=== PATIENT | male | born 1955 | race Caucasian/White ===

== ENCOUNTER 2020-06-09 16:22 | Emergency (ER) | payer OTHER ==
[2020-06-09] MEDS ORDERED: DIPH/PERTUSS(ACELL)/TETANUS VAC/PF 0.5 ML SYR (>=10YO) IM ONE (16:39)
--- NOTE | 2020-06-09 16:44 | ER Document Report ---
ED Medical Screen (RME) - General Chief Complaint: Laceration Stated Complaint: LACERATION/CHEEK, NOSE BLEEDING Time Seen by Provider: 06/09/20 16:38 Mode of Arrival: Ambulatory Information source: Patient Notes: 65-year-old male presented to ED for multiple lacerations to the right side of his face. He states he was at work when a branch hit him in the face. He has a very irregular wound to the right side of his face that is bleeding at this time. He states he does take a baby aspirin. He states he does not know when his last tetanus immunization was. I have sent him for a facial CT he states he did not have any other injuries to his head or his jaw just the cheek and eye socket where he was hit. I have greeted and performed a rapid initial assessment of this patient. A comprehensive ED assessment and evaluation of the patient, analysis of test results and completion of medical decision making process will be conducted by an additional ED providers. Physical Exam - Vital signs Vitals: Temp Pulse Resp BP Pulse Ox 97.5 F 68 18 139/72 H 97 06/09/20 16:26 06/09/20 16:26 06/09/20 16:26 06/09/20 16:26 06/09/20 16:26 Course - Vital Signs Vital signs: Temp Pulse Resp BP Pulse Ox 97.5 F 68 18 139/72 H 97 06/09/20 16:26 06/09/20 16:26 06/09/20 16:26 06/09/20 16:26 06/09/20 16:26
--- NOTE | 2020-06-09 17:07 | ER Document Report ---
ED General - General Chief Complaint: Laceration Stated Complaint: LACERATION/CHEEK, NOSE BLEEDING Time Seen by Provider: 06/09/20 16:38 Mode of Arrival: Ambulatory - [facility] Notes: 65-year-old male presents with injury to his right cheek. Patient states that he was outside at work, he was suddenly hit in the face by a flying branch, estimated to be about 2 feet long and 1 inch in diameter. This occurred around 3:30 PM. After the impact he states that he had a little dizziness, but did not lose consciousness, did not fall back or have a head injury. He currently complains of pain to the area and feels that his upper bite is not aligned as usual. Had some nosebleeding from the right side which has seemed to have stopped now. He denies eye pain or foreign body sensation to the right eye, denies visual changes. He denies headache or neck pain currently. Denies any other injuries. He is unsure of his last tetanus. - Related Data Allergies/Adverse Reactions: No Known Allergies Allergy (Verified 06/09/20 17:23) Past Medical History - General Information source: Patient - Social History Smoking Status: Unknown if Ever Smoked Family History: Reviewed & Not Pertinent Review of Systems - Review of Systems Constitutional: No symptoms reported EENT: Dental problem. denies: Eye pain, Blurred vision Cardiovascular: No symptoms reported Respiratory: No symptoms reported Gastrointestinal: No symptoms reported Genitourinary: No symptoms reported Male Genitourinary: No symptoms reported Musculoskeletal: No symptoms reported Skin: Other - Wound Hematologic/Lymphatic: No symptoms reported Neurological/Psychological: denies: Weakness, Headaches Physical Exam - Vital signs Vitals: Temp Pulse Resp BP Pulse Ox 97.5 F 68 18 139/72 H 97 06/09/20 16:26 06/09/20 16:26 06/09/20 16:26 06/09/20 16:26 06/09/20 16:26 Interpretation: No: Hypotensive - General General appearance: Appears well, Alert - HEENT Head: Normocephalic, Atraumatic Eyes: No: Periorbital ecchymosis, Periorbital edema Extraocular movements intact: Yes Pupils: PERRL Notes: There is evidence of prior right-sided nose bleeding. No septal hematoma. He has irregular laceration to right cheek, approximately 6 cm in length, deep. There is tenderness around the right cheek. No right orbital or nasal tenderness. Right TM is clear. no looseness to upper partial denture - Respiratory Respiratory status: No respiratory distress Chest status: Nontender Breath sounds: Normal Chest palpation: Normal - Cardiovascular Rhythm: Regular - Abdominal Tenderness: Nontender - Back Back: Normal, Nontender - No midline C-spine tenderness - Extremities General upper extremity: Normal inspection General lower extremity: Normal inspection - No tenderness to bilateral shoulders, arms, hips, lower extremities - Neurological Neuro grossly intact: Yes Cognition: Normal Orientation: AAOx4 [place] Coma Scale Eye Opening: Spontaneous [place] Coma Scale Verbal: Oriented [place] Coma Scale Motor: Obeys Commands [place] Coma Scale Total: 15 - Psychological Associated symptoms: Normal affect - Skin Skin Temperature: Warm Course - Re-evaluation Re-evalutation: 06/09/20 17:33 65-year-old male presents after sustaining a right cheek laceration from a branch. He is alert and oriented, GCS 15, vitals are stable. He has a large laceration to his right cheek. A CT max face was ordered from triage, I have reviewed and it appears that he has a right maxillary fracture, therefore making this an open fracture. Final CT read is pending. Will cover with Unas[employer]. Treat pain and update tetanus. Add CT head/cspine, low suspicion for injury. 06/09/20 17:51 CT has resulted, showing b/l maxillary fractures. 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 He lives in [place] and would prefer to go to [facility] 06/09/20 19:[address] head/cspine 06/09/20 19:22 called [facility] to initiate transfer 06/09/20 19:[address] Cohen on for face coverage at [facility]. She requests to see pt in her office tomorrow, does not need transfer. has asked for wound washout and repair, dx with abx. will see in office at 3pm tomorrow. 06/09/20 21:04 Laceration was repaired at bedside. Discussed face fracture precautions and again rediscussed to follow-up tomorrow with plastic surgery. 06/09/20 22:06 Patient's arrived at bedside. We went over all precautions. Has received prescriptions for Augmentin and [place]. Patient was discharged in stable condition. - Vital Signs Vital signs: Temp Pulse Resp BP Pulse Ox 97.5 F 68 18 139/72 H 97 06/09/20 16:26 06/09/20 16:26 06/09/20 16:26 06/09/20 16:26 06/09/20 16:26 Procedures - Laceration/Wound Repair Right Face Wound length (cm): 6 Wound's Depth, Shape: Irregular, Contused tissue Laceration pre-procedure: Sterile PPE donned, Betadine prep applied, Sterile drapes applied Anesthetic type: 1% Lidocaine w/epi Volume Anesthetic (mLs): 5 Wound explored: No foreign body removed Irrigated w/ Saline (mLs): 1,000 Wound Repaired With: Sutures Suture Size/Type: 5:0, Prolene Number of Sutures: 6 Layer Closure?: No Post-procedure wound care: Sterile dressing applied Complications: No Discharge - Discharge Clinical Impression: Open fracture facial bones Qualifiers: Encounter type: initial encounter Facial bone/location: unspecified site of maxillary bone Laterality: right Qualified Code(s): S02.40CB - Maxillary fracture, right side, initial encounter for open fracture Condition: Stable Disposition: HOME, SELF-CARE Additional Instructions: Please do not eat any hard foods. Do not blow your nose. Begin course of antibiotics. Use prescribed [place] as needed for pain. Please see Dr. Cohen with plastic surgery tomorrow at 3 PM in [place], have attached her address below. office tomorrow @ 3p Dr Anupama Cohen [address], [place] [phone] Prescriptions: Hydrocodone/Acetaminophen [[place] 5-325 mg Tablet] 1 tab PO Q4HP PRN #20 tablet PRN Reason: Pain Scale Of 3 Amoxicillin/Potassium Clav [Augmentin 875-125 Tablet] 1 tab PO BID 10 Days #20 tab Print Language: Azeri
[2020-06-09] MEDS ORDERED: MORPHINE SULFATE 10 MG/ML INJ IV ONE (17:18)
[2020-06-09] MEDS ORDERED: AMPICILLIN SOD/SULBACTAM 3 GM VIAL IV ONE (17:19)
--- NOTE | 2020-06-09 17:38 | RADIOLOGY REPORT (SQ) ---
EXAM DESCRIPTION: CT FACIAL AREA WITHOUT IMAGES COMPLETED DATE/TIME: 06/09/2020 4:53 pm REASON FOR STUDY: Branch to the face large lacerations COMPARISON: None. TECHNIQUE: Noncontrasted images through the facial bones and orbits windowed for bone and soft tissu e. Additional coronal and sagittal reconstructed images reviewed. All images stored on PACS. All CT scanners at this facility use dose modulation, iterative reconstruction, and/or weight based d osing when appropriate to reduce radiation dose to as low as reasonably achievable (ALARA). [facility]: Dose Right [facility]: CareDose [facility]: Dose Right [facility]: Teradose 4D [facility]: Smart [email or web address] RADIATION DOSE: CT Rad equipment meets quality standard of care and radiation dose reduction techniq ues were employed. CTDIvol: 30.4 mGy. DLP: 555 mGy-cm. mGy. LIMITATIONS: None. FINDINGS: FACIAL BONES: There is a depressed comminuted fracture of the anterior wall of the right m axillary sinus, there are mildly displaced fractures of bilateral maxillary lateral cruz and a mildl y depressed fracture of the anterior wall of the left maxillary sinus. The medial cruz and orbital floors appear to be intact. The right frontal process appears minimally displaced. The nasal bones remain intact. The septum remains in the midline. The remaining osseous structures remain intact. ORBITS: Intact. No fracture. Symmetric intact globes and retroorbital soft tissues. PARANASAL SINUSES: Mucosal thickening and blood are seen throughout the maxillary sinuses. The [place] paranasal sinuses and mastoid air cells appear clear. The ostiomeatal units and frontoethmoidal and sphenoid ethmoidal recesses remain patent. SOFT TISSUES: Marked heterogeneity is seen of the pre maxillary soft tissues (right more so than left ). No retained radiopaque foreign body is demonstrated. Extensive subcutaneous gas is visualized. INFERIOR BRAIN: Limited view. No acute findings. OTHER: No other significant finding. IMPRESSION: Comminuted fractures of the bilateral anterior and lateral maxillary cruz without orbit al for fracture. Mildly displaced frontal process fracture. Extensive soft tissue injuries without retained radiopaque foreign body. TECHNICAL DOCUMENTATION: JOB ID: [id number] Quality ID # 436: Final reports with documentation of one or more dose reduction techniques (e.g., Au tomated exposure control, adjustment of the mA and/or kV according to patient size, use of iterative reconstruction technique) 2010 [employer]- All Rights Reserved Reading location - IP/workstation name: [email or web address]
--- NOTE | 2020-06-09 19:13 | RADIOLOGY REPORT (SQ) ---
EXAM DESCRIPTION: CT HEAD WITHOUT IMAGES COMPLETED DATE/TIME: 06/09/2020 7:01 pm REASON FOR STUDY: tree brach vs face COMPARISON: None. TECHNIQUE: Axial images acquired through the brain without intravenous contrast. Images reviewed wi th bone, brain and subdural windows. Additional sagittal and coronal reconstructions were generated. Images stored on PACS. All CT scanners at this facility use dose modulation, iterative reconstruction, and/or weight based d osing when appropriate to reduce radiation dose to as low as reasonably achievable (ALARA). [facility]: Dose Right [facility]: CareDose [facility]: Dose Right [facility]: Teradose 4D [facility]: Smart [employer] RADIATION DOSE: CT Rad equipment meets quality standard of care and radiation dose reduction techniq ues were employed. CTDIvol: 53.2 mGy. DLP: 1044 mGy-cm. mGy. LIMITATIONS: None. FINDINGS: VENTRICLES: Normal size and contour. CEREBRUM: No masses. No hemorrhage. No midline shift. No evidence for acute infarction. Normal gra y/white matter differentiation. No areas of low density in the white matter. CEREBELLUM: No masses. No hemorrhage. No alteration of density. No evidence for acute infarction. EXTRAAXIAL SPACES: No fluid collections. No masses. ORBITS AND GLOBE: No intra- or extraconal masses. Normal contour of globe without masses. CALVARIUM: No fracture. PARANASAL SINUSES: There appears to be a fracture of the anterior wall of the right maxillary sinus. There is some air in the soft tissues anteriorly. There is considerable opacification in the right maxillary sinus. There appears to be a fracture of the posterior wall of the left maxillary sinus wi th considerable opacification. Minor fracture of the anterior wall the left maxillary sinus. SOFT TISSUES: No mass or hematoma. OTHER: No other significant finding. IMPRESSION: There appear to be fractures of both maxillary sinuses as described. EVIDENCE OF ACUTE STROKE: NO. COMMENT: Quality ID # 436: Final reports with documentation of one or more dose reduction techniques (e.g., Automated exposure control, adjustment of the mA and/or kV according to patient size, use of iterative reconstruction technique) TECHNICAL DOCUMENTATION: JOB ID: [id number] 2010 [employer]- All Rights Reserved Reading location - IP/workstation name: [email or web address]
--- NOTE | 2020-06-09 19:15 | RADIOLOGY REPORT (SQ) ---
EXAM DESCRIPTION: CT CERVICAL SPINE WITHOUT IMAGES COMPLETED DATE/TIME: 06/09/2020 7:01 pm REASON FOR STUDY: tree brach vs face COMPARISON: None. TECHNIQUE: Axial images acquired through the cervical spine without intravenous contrast. Images re viewed with lung, soft tissue and bone windows. Reconstructed coronal and sagittal MPR images review ed. Images stored on PACS. All CT scanners at this facility use dose modulation, iterative reconstruction, and/or weight based d osing when appropriate to reduce radiation dose to as low as reasonably achievable (ALARA). [facility]: Dose Right [facility]: CareDose [facility]: Dose Right [facility]: Teradose 4D [facility]: Smart [employer] RADIATION DOSE: CT Rad equipment meets quality standard of care and radiation dose reduction techniq ues were employed. CTDIvol: 21.6 mGy. DLP: 456 mGy-cm. mGy. LIMITATIONS: None. FINDINGS: ALIGNMENT: Anatomic. MINERALIZATION: Normal. VERTEBRAL BODIES: No fractures or dislocation. DISCS: No significant disc disease. FACETS, LATERAL MASSES, POSTERIOR ELEMENTS: No fractures. No dislocation. No acute findings. HARDWARE: None in the spine. VISUALIZED RIBS: No fractures. LUNG APICES AND SOFT TISSUES: No significant or acute findings. OTHER: No other significant finding. IMPRESSION: NO ACUTE OR SIGNIFICANT FINDINGS IN THE CERVICAL SPINE. TECHNICAL DOCUMENTATION: JOB ID: [id number] Quality ID # 436: Final reports with documentation of one or more dose reduction techniques (e.g., Au tomated exposure control, adjustment of the mA and/or kV according to patient size, use of iterative reconstruction technique) 2010 [employer]- All Rights Reserved Reading location - IP/workstation name: [email or web address]
[2020-06-09] MEDS ORDERED: LIDOCAINE 1.5%/EPINEPHRINE INJ-PF 30 ML SDV INJ ONE (20:06)
[2020-06-09] MEDS ORDERED: HYDROCODONE/ACETAMINOPHEN 5-325 MG TABLET PO ONE (21:04)
[2020-06-09 21:55] VITALS: BP 142/79
== END 2020-06-09 21:57 | disposition home or self-care (01) ==
LOC: ER 16:22
DX: S02.40CB Maxillary fracture, right side, initial encounter for open fracture (principal); S02.40DA Maxillary fracture, left side, initial encounter for closed fracture; S02.0XXA Fracture of vault of skull, initial encounter for closed fracture; W20.8XXA Other cause of strike by thrown, projected or falling object, initial encounter; Y99.0 Civilian activity done for income or pay; Z23 Encounter for immunization
CPT/HCPCS: 99285; 90471; 96374; 96375; 70450; 70486; 72125; 90715; 12014; J0295; J2270; J3490